=== PATIENT | male | born 1970 | race Caucasian/White ===

== ENCOUNTER 2025-11-21 21:05 | Emergency (ER) | payer OTHER, BC ==
[~2025-11-21] VITALS: Ht 188 cm; Wt 105.0 kg
[2025-11-21] MEDS ORDERED: PANTOPRAZOLE SO40 MG PO (21:19)
[2025-11-21] MEDS ORDERED: CYCLOBENZAPRINE HCL 10 MG TAB PO ONE (22:00)
[2025-11-21] MEDS ORDERED: KETOROLAC TROMETHAMINE 30 MG/ML VIAL IM ONE (22:00)
[2025-11-21 22:24] LABS: BLOOD/HGB, URINE NEGATIVE (Negative); KETONE, URINE NEGATIVE (Negative); LEUK ESTERASE, URINE NEGATIVE (negative); NITRITE, URINE NEGATIVE (negative)
[2025-11-21] MEDS ORDERED: CYCLOBENZAPRINE10 MG PO (23:05)
[2025-11-21] MEDS ORDERED: CYCLOBENZAPRINE HCL 10 MG HOME.PACK PO ONE (23:15)
== END 2025-11-21 23:27 | disposition home or self-care (01) ==
LOC: ED 21:05
PROVIDERS: Internal Medicine
DX: S39.012A Strain of muscle, fascia and tendon of lower back, initial encounter (principal); K21.9 Gastro-esophageal reflux disease without esophagitis; Z79.899 Other long term (current) drug therapy; X50.0XXA Overexertion from strenuous movement or load, initial encounter
CPT/HCPCS: 81003; 96372; 99283; J1885